=== PATIENT | male | born 1935 | race Caucasian/White ===

== ENCOUNTER 2020-08-11 23:44 | Inpatient (IN) ==
[2020-08-12] MEDS ORDERED: SODIUM CHLORIDE 0.9% 1,000 ML IV STA (00:10)
[2020-08-12 01:22] LABS: ABG Base Excess 3.8 MMOL/L (-2.5-2.5); ABG HCO3 27.8 MMOL/L (20-26); ABG Oxygen Saturation 96.8 % (95-100); ABG PCO2 37.9 MM HG (35-48); ABG PO2 80.8 MM HG (80-95); ABG TCO2 25.3 MMOL/L (23-27)
[2020-08-12 01:23] LABS: Basophils % 0.1 % (0.0-0.8); Hematocrit 30.8 VOL% (42.0-52.0); Hemoglobin 9.9 GM/DL (14.0-18.0); Immature Granulocytes % 1.3 %; Immature Granulocytes Absolute 0.16 #; Lymphocytes # 0.6 10*3/uL (1.4-4.0); Mean Corpuscular HGB Conc 32.1 GM/DL (32-36); Mean Corpuscular Volume 93.6 FL (87-102); Mean Platelet Volume 9.4 FL (9.6-12.0); Monocytes % 1.7 % (1.7-12.7); Neutrophils % 91.9 % (38.7-73.9); Platelet Count 509 T/CUMM (130-400); Red Blood Count 3.29 MC/CUMM (3.8-5.5); Red Cell Distribution Width 15.1 % (9.3-17.3); White Blood Count 12.1 T/CUMM (4-12)
[2020-08-12 01:29] LABS: INR 1.1; PT Patient Result 12.2 SECS (9.8-11.9)
[2020-08-12 01:33] LABS: Albumin 2.1 G/DL (3.4-5.0); Bilirubin,Total 1.2 MG/DL (0.2-1.0); Calcium 7.6 MG/DL (8.5-10.1); Ferritin 614.1 ng/ml (26-388); Osmolality,Calculated 283.7 MOS/KG (273-304); Potassium 3.8 MMOL/L (3.5-5.1)
[2020-08-12] MEDS ORDERED: PIPERACILLIN/TAZOBACTAM 3,375 MG in SODIUM CHLORIDE 0.9% 100 ML IV STA (03:24)
[2020-08-12 03:44] LABS: Lymphocytes 2 % (20-55); Platelet Estimate Increased; Segmented Neutrophils 98 % (50-85); Total Cells Counted 100
[2020-08-12 03:45] LABS: Schistocytes Slight
[2020-08-12 03:46] LABS: Polychromasia Few
[2020-08-12 03:58] LABS: Bilirubin,Urine Negative (Negative); Blood, Urine Negative (Negative); Glucose,Urine (UA) Negative (Negative); Ketones,Urine Negative (Negative); Nitrite,Urine Negative (Negative); Protein,Urine 30 MG/DL; Urine Appearance CLEAR (Clear); Urine Color Amber (Yellow); Urine Specific Gravity 1.026 (1.001-1.035); Urine Urobilinogen < 2.0 EU/DL (0.2-1.0)
[2020-08-12] MEDS ORDERED: hydrALAZINE 20 MG/1 ML VIAL IV PRN (09:42)
[2020-08-12] MEDS ORDERED: DEXTROSE 50% 25 GM/50 ML VIAL IV PRN (09:42)
[2020-08-12] MEDS ORDERED: MORPHINE 4 MG/1 ML VIAL IV PRN (09:42)
[2020-08-12] MEDS ORDERED: ONDANSETRON 4 MG/2 ML VIAL IV PRN (09:42)
[2020-08-12] MEDS ORDERED: ENOXAPARIN 40 MG/0.4 ML SYRINGE SUBCUT SCH (10:00)
[2020-08-12] MEDS: PIPERACILLIN/TAZOBACTAM 3,375 MG in SODIUM CHLORIDE 0.9% 100 ML IV SCH ×2 (11:41→21:01)
[2020-08-12] MEDS: AMIODARONE 200 MG TABLET PO SCH (13:10)
[2020-08-12] MEDS: CHOLECALCIFEROL 1,000 UNIT TABLET PO SCH (13:10)
[2020-08-12] MEDS: ASPIRIN EC 81 MG TABLET PO SCH (13:10)
[2020-08-12] MEDS: TAMSULOSIN 0.4 MG CAPSULE PO SCH (13:10)
[2020-08-12] MEDS: APIXABAN 2.5 MG TABLET PO SCH ×2 (13:10→20:56)
[2020-08-12] MEDS: FUROSEMIDE 40 MG/4 ML VIAL IV SCH (16:46)
[2020-08-12] MEDS: CALCIUM (CARBONATE) 600 MG TABLET PO SCH (17:17)
[2020-08-12] MEDS: guaiFENesin/DM ER 600-30 MG TABLET PO SCH (21:01)
[2020-08-13] MEDS: PIPERACILLIN/TAZOBACTAM 3,375 MG in SODIUM CHLORIDE 0.9% 100 ML IV SCH ×3 (05:27→22:05)
[2020-08-13 06:39] LABS: Risk Ratio 2.74; VLDL CHOLESTEROL 13.8 MG/DL
[2020-08-13] MEDS: AMIODARONE 200 MG TABLET PO SCH (08:44)
[2020-08-13] MEDS: CALCIUM (CARBONATE) 600 MG TABLET PO SCH ×2 (08:44→19:01)
[2020-08-13] MEDS: guaiFENesin/DM ER 600-30 MG TABLET PO SCH ×2 (08:44→22:05)
[2020-08-13] MEDS: ASPIRIN EC 81 MG TABLET PO SCH (08:44)
[2020-08-13] MEDS: CHOLECALCIFEROL 1,000 UNIT TABLET PO SCH (08:44)
[2020-08-13] MEDS: FUROSEMIDE 40 MG/4 ML VIAL IV SCH ×2 (08:45→17:51)
[2020-08-13] MEDS: APIXABAN 2.5 MG TABLET PO SCH ×2 (08:45→22:05)
[2020-08-13] MEDS: TAMSULOSIN 0.4 MG CAPSULE PO SCH (08:45)
[2020-08-14] MEDS: PIPERACILLIN/TAZOBACTAM 3,375 MG in SODIUM CHLORIDE 0.9% 100 ML IV SCH ×3 (05:32→22:33)
[2020-08-14] MEDS: APIXABAN 2.5 MG TABLET PO SCH ×2 (09:22→22:32)
[2020-08-14] MEDS: ASPIRIN EC 81 MG TABLET PO SCH (09:22)
[2020-08-14] MEDS: guaiFENesin/DM ER 600-30 MG TABLET PO SCH ×2 (09:22→22:32)
[2020-08-14] MEDS: TAMSULOSIN 0.4 MG CAPSULE PO SCH (09:23)
[2020-08-14] MEDS: AMIODARONE 200 MG TABLET PO SCH (09:23)
[2020-08-14] MEDS: FUROSEMIDE 40 MG/4 ML VIAL IV SCH ×2 (09:23→16:35)
[2020-08-14] MEDS: CALCIUM (CARBONATE) 600 MG TABLET PO SCH ×2 (09:23→16:55)
[2020-08-14] MEDS: CHOLECALCIFEROL 1,000 UNIT TABLET PO SCH (10:05)
[2020-08-14] MEDS: NYSTATIN 500,000 UNIT/5 ML UDCUP SWISH/SWAL SCH ×2 (16:55→22:33)
[2020-08-14] MEDS: methylPREDNISolone SOD SUC 40 MG/1 ML VIAL IV SCH (16:55)
[2020-08-15] MEDS: methylPREDNISolone SOD SUC 40 MG/1 ML VIAL IV SCH ×3 (00:35→17:04)
[2020-08-15] MEDS: PIPERACILLIN/TAZOBACTAM 3,375 MG in SODIUM CHLORIDE 0.9% 100 ML IV SCH ×3 (05:25→20:14)
[2020-08-15] MEDS: ASPIRIN EC 81 MG TABLET PO SCH (08:56)
[2020-08-15] MEDS: CHOLECALCIFEROL 1,000 UNIT TABLET PO SCH (08:56)
[2020-08-15] MEDS: NYSTATIN 500,000 UNIT/5 ML UDCUP SWISH/SWAL SCH ×4 (08:56→20:15)
[2020-08-15] MEDS: CALCIUM (CARBONATE) 600 MG TABLET PO SCH ×2 (08:56→17:05)
[2020-08-15] MEDS: APIXABAN 2.5 MG TABLET PO SCH ×2 (08:56→20:15)
[2020-08-15] MEDS: AMIODARONE 200 MG TABLET PO SCH (08:56)
[2020-08-15] MEDS: guaiFENesin/DM ER 600-30 MG TABLET PO SCH ×2 (08:56→20:15)
[2020-08-15] MEDS: FUROSEMIDE 40 MG/4 ML VIAL IV SCH ×2 (08:56→17:05)
[2020-08-15] MEDS: TAMSULOSIN 0.4 MG CAPSULE PO SCH (08:56)
[2020-08-16] MEDS: methylPREDNISolone SOD SUC 40 MG/1 ML VIAL IV SCH ×3 (00:32→16:05)
[2020-08-16] MEDS: PIPERACILLIN/TAZOBACTAM 3,375 MG in SODIUM CHLORIDE 0.9% 100 ML IV SCH ×3 (05:13→20:23)
[2020-08-16 05:34] LABS: Basophils % 0.1 % (0.0-0.8); Hematocrit 30.5 VOL% (42.0-52.0); Hemoglobin 9.8 GM/DL (14.0-18.0); Immature Granulocytes % 0.6 %; Immature Granulocytes Absolute 0.09 #; Lymphocytes # 0.7 10*3/uL (1.4-4.0); Lymphocytes % 4.7 % (21.2-54.2); Mean Corpuscular HGB Conc 32.1 GM/DL (32-36); Mean Corpuscular Volume 92.7 FL (87-102); Mean Platelet Volume 9.4 FL (9.6-12.0); Monocytes % 2.3 % (1.7-12.7); Neutrophils % 92.3 % (38.7-73.9); Platelet Count 472 T/CUMM (130-400); Red Blood Count 3.29 MC/CUMM (3.8-5.5); Red Cell Distribution Width 15.2 % (9.3-17.3); White Blood Count 13.9 T/CUMM (4-12)
[2020-08-16 05:54] LABS: Calcium 7.3 MG/DL (8.5-10.1); Osmolality,Calculated 303.4 MOS/KG (273-304); Potassium 3.4 MMOL/L (3.5-5.1)
[2020-08-16 06:07] LABS: Hypochromasia 1+; Lymphocytes 2 % (20-55); Microcytosis 1+; Platelet Estimate Adequate; Segmented Neutrophils 96 % (50-85); Total Cells Counted 100
[2020-08-16] MEDS: CALCIUM (CARBONATE) 600 MG TABLET PO SCH ×2 (09:00→16:06)
[2020-08-16] MEDS: FUROSEMIDE 40 MG/4 ML VIAL IV SCH ×2 (09:00→16:05)
[2020-08-16] MEDS: AMIODARONE 200 MG TABLET PO SCH (09:00)
[2020-08-16] MEDS: TAMSULOSIN 0.4 MG CAPSULE PO SCH (09:01)
[2020-08-16] MEDS: NYSTATIN 500,000 UNIT/5 ML UDCUP SWISH/SWAL SCH ×4 (09:01→20:25)
[2020-08-16] MEDS: ASPIRIN EC 81 MG TABLET PO SCH (09:01)
[2020-08-16] MEDS: guaiFENesin/DM ER 600-30 MG TABLET PO SCH ×2 (09:01→20:23)
[2020-08-16] MEDS: APIXABAN 2.5 MG TABLET PO SCH ×2 (09:01→20:23)
[2020-08-16] MEDS: CHOLECALCIFEROL 1,000 UNIT TABLET PO SCH (09:01)
[2020-08-17] MEDS: methylPREDNISolone SOD SUC 40 MG/1 ML VIAL IV SCH ×3 (00:53→17:05)
[2020-08-17] MEDS: PIPERACILLIN/TAZOBACTAM 3,375 MG in SODIUM CHLORIDE 0.9% 100 ML IV SCH (04:31)
[2020-08-17] MEDS: CHOLECALCIFEROL 1,000 UNIT TABLET PO SCH (09:23)
[2020-08-17] MEDS: FUROSEMIDE 40 MG/4 ML VIAL IV SCH (09:24)
[2020-08-17] MEDS: guaiFENesin/DM ER 600-30 MG TABLET PO SCH ×2 (09:24→21:19)
[2020-08-17] MEDS: CALCIUM (CARBONATE) 600 MG TABLET PO SCH ×2 (09:24→17:05)
[2020-08-17] MEDS: ASPIRIN EC 81 MG TABLET PO SCH (09:24)
[2020-08-17] MEDS: TAMSULOSIN 0.4 MG CAPSULE PO SCH (09:24)
[2020-08-17] MEDS: APIXABAN 2.5 MG TABLET PO SCH ×2 (09:24→21:18)
[2020-08-17] MEDS: NYSTATIN 500,000 UNIT/5 ML UDCUP SWISH/SWAL SCH ×4 (09:24→21:18)
[2020-08-18] MEDS: methylPREDNISolone SOD SUC 40 MG/1 ML VIAL IV SCH ×3 (01:21→16:43)
[2020-08-18 06:29] LABS: Basophils % 0.1 % (0.0-0.8); Hematocrit 36.2 VOL% (42.0-52.0); Hemoglobin 11.4 GM/DL (14.0-18.0); Immature Granulocytes % 0.8 %; Immature Granulocytes Absolute 0.12 #; Lymphocytes # 0.4 10*3/uL (1.4-4.0); Lymphocytes % 2.8 % (21.2-54.2); Mean Corpuscular HGB Conc 31.5 GM/DL (32-36); Mean Platelet Volume 9.7 FL (9.6-12.0); Monocytes % 1.9 % (1.7-12.7); Neutrophils % 94.4 % (38.7-73.9); Platelet Count 429 T/CUMM (130-400); Red Blood Count 3.85 MC/CUMM (3.8-5.5); Red Cell Distribution Width 14.6 % (9.3-17.3); White Blood Count 15.1 T/CUMM (4-12)
[2020-08-18 06:50] LABS: Calcium 7.7 MG/DL (8.5-10.1); Osmolality,Calculated 307.4 MOS/KG (273-304); Potassium 3.6 MMOL/L (3.5-5.1)
[2020-08-18 06:55] LABS: Band Neutrophils 1 % (0-10); Hypochromasia Slight; Lymphocytes 2 % (20-55); Platelet Estimate Adequate; Segmented Neutrophils 96 % (50-85); Total Cells Counted 100
[2020-08-18 06:56] LABS: Microcytosis Slight
[2020-08-18] MEDS: CALCIUM (CARBONATE) 600 MG TABLET PO SCH ×2 (09:50→17:16)
[2020-08-18] MEDS: TAMSULOSIN 0.4 MG CAPSULE PO SCH (09:50)
[2020-08-18] MEDS: guaiFENesin/DM ER 600-30 MG TABLET PO SCH ×2 (09:50→20:36)
[2020-08-18] MEDS: APIXABAN 2.5 MG TABLET PO SCH ×2 (09:50→20:36)
[2020-08-18] MEDS: ASPIRIN EC 81 MG TABLET PO SCH (09:50)
[2020-08-18] MEDS: NYSTATIN 500,000 UNIT/5 ML UDCUP SWISH/SWAL SCH ×4 (09:51→20:36)
[2020-08-18] MEDS: CHOLECALCIFEROL 1,000 UNIT TABLET PO SCH (09:55)
[2020-08-19] MEDS: methylPREDNISolone SOD SUC 40 MG/1 ML VIAL IV SCH ×3 (01:07→17:39)
[2020-08-19] MEDS: CHOLECALCIFEROL 1,000 UNIT TABLET PO SCH (08:57)
[2020-08-19] MEDS: TAMSULOSIN 0.4 MG CAPSULE PO SCH (08:57)
[2020-08-19] MEDS: ASPIRIN EC 81 MG TABLET PO SCH (08:57)
[2020-08-19] MEDS: CALCIUM (CARBONATE) 600 MG TABLET PO SCH ×2 (08:57→17:39)
[2020-08-19] MEDS: APIXABAN 2.5 MG TABLET PO SCH ×2 (08:57→21:20)
[2020-08-19] MEDS: guaiFENesin/DM ER 600-30 MG TABLET PO SCH ×2 (08:57→21:20)
[2020-08-19] MEDS: NYSTATIN 500,000 UNIT/5 ML UDCUP SWISH/SWAL SCH ×4 (08:58→21:20)
[2020-08-19 15:43] LABS: Hematocrit 36.8 VOL% (42.0-52.0)
[2020-08-20] MEDS: methylPREDNISolone SOD SUC 40 MG/1 ML VIAL IV SCH ×3 (00:13→17:41)
[2020-08-20] MEDS: APIXABAN 2.5 MG TABLET PO SCH ×2 (08:44→20:57)
[2020-08-20] MEDS: CHOLECALCIFEROL 1,000 UNIT TABLET PO SCH (08:44)
[2020-08-20] MEDS: NYSTATIN 500,000 UNIT/5 ML UDCUP SWISH/SWAL SCH ×4 (08:44→20:57)
[2020-08-20] MEDS: ASPIRIN EC 81 MG TABLET PO SCH (08:44)
[2020-08-20] MEDS: guaiFENesin/DM ER 600-30 MG TABLET PO SCH ×2 (08:45→20:57)
[2020-08-20 08:46] LABS: Basophils % 0.2 % (0.0-0.8); Hematocrit 37.3 VOL% (42.0-52.0); Hemoglobin 11.5 GM/DL (14.0-18.0); Immature Granulocytes % 1.1 %; Immature Granulocytes Absolute 0.18 #; Lymphocytes # 0.5 10*3/uL (1.4-4.0); Lymphocytes % 2.8 % (21.2-54.2); Mean Corpuscular HGB Conc 30.8 GM/DL (32-36); Mean Corpuscular Volume 94.7 FL (87-102); Mean Platelet Volume 9.6 FL (9.6-12.0); Monocytes % 2.6 % (1.7-12.7); Neutrophils % 93.3 % (38.7-73.9); Platelet Count 395 T/CUMM (130-400); Red Blood Count 3.94 MC/CUMM (3.8-5.5); Red Cell Distribution Width 15.1 % (9.3-17.3); White Blood Count 16.2 T/CUMM (4-12)
[2020-08-20] MEDS: CALCIUM (CARBONATE) 600 MG TABLET PO SCH ×2 (08:46→17:42)
[2020-08-20] MEDS: TAMSULOSIN 0.4 MG CAPSULE PO SCH (08:46)
[2020-08-20 09:06] LABS: Hypochromasia Slight; Lymphocytes 2 % (20-55); Platelet Estimate Adequate; Segmented Neutrophils 98 % (50-85); Total Cells Counted 100
[2020-08-20 09:09] LABS: Potassium 3.6 MMOL/L (3.5-5.1)
[2020-08-20] MEDS ORDERED: DEXTROSE 5% NACL 0.45% 1,000 ML IV SCH (16:00)
[2020-08-21] MEDS: methylPREDNISolone SOD SUC 40 MG/1 ML VIAL IV SCH ×3 (00:52→17:42)
[2020-08-21 05:43] LABS: Basophils % 0.1 % (0.0-0.8); Hematocrit 35.2 VOL% (42.0-52.0); Hemoglobin 10.7 GM/DL (14.0-18.0); Immature Granulocytes % 0.8 %; Immature Granulocytes Absolute 0.14 #; Lymphocytes # 0.4 10*3/uL (1.4-4.0); Lymphocytes % 2.4 % (21.2-54.2); Mean Corpuscular HGB Conc 30.4 GM/DL (32-36); Mean Corpuscular Volume 95.7 FL (87-102); Mean Platelet Volume 10.2 FL (9.6-12.0); Monocytes % 2.2 % (1.7-12.7); Neutrophils % 94.5 % (38.7-73.9); Platelet Count 362 T/CUMM (130-400); Red Blood Count 3.68 MC/CUMM (3.8-5.5); Red Cell Distribution Width 15.2 % (9.3-17.3); White Blood Count 17.4 T/CUMM (4-12)
[2020-08-21 06:18] LABS: Calcium 7.8 MG/DL (8.5-10.1); Osmolality,Calculated 317.9 MOS/KG (273-304); Potassium 3.6 MMOL/L (3.5-5.1)
[2020-08-21 06:19] LABS: Osmolality,Calculated 317.7 MOS/KG (273-304); Potassium 3.6 MMOL/L (3.5-5.1)
[2020-08-21 06:43] LABS: Lymphocytes 3 % (20-55); Platelet Estimate Normal; Segmented Neutrophils 96 % (50-85); Total Cells Counted 100
[2020-08-21] MEDS: guaiFENesin/DM ER 600-30 MG TABLET PO SCH ×2 (09:20→20:22)
[2020-08-21] MEDS: ASPIRIN EC 81 MG TABLET PO SCH (09:20)
[2020-08-21] MEDS: CALCIUM (CARBONATE) 600 MG TABLET PO SCH ×2 (09:21→17:42)
[2020-08-21] MEDS: TAMSULOSIN 0.4 MG CAPSULE PO SCH (09:21)
[2020-08-21] MEDS: CHOLECALCIFEROL 1,000 UNIT TABLET PO SCH (09:21)
[2020-08-21] MEDS: APIXABAN 2.5 MG TABLET PO SCH ×2 (09:21→20:22)
[2020-08-21] MEDS: NYSTATIN 500,000 UNIT/5 ML UDCUP SWISH/SWAL SCH ×4 (09:21→20:23)
[2020-08-22] MEDS: methylPREDNISolone SOD SUC 40 MG/1 ML VIAL IV SCH ×3 (00:05→16:30)
[2020-08-22 05:12] LABS: Basophils % 0.1 % (0.0-0.8); Hematocrit 34.3 VOL% (42.0-52.0); Hemoglobin 10.7 GM/DL (14.0-18.0); Immature Granulocytes % 1.2 %; Immature Granulocytes Absolute 0.23 #; Lymphocytes # 0.5 10*3/uL (1.4-4.0); Lymphocytes % 2.6 % (21.2-54.2); Mean Corpuscular HGB Conc 31.2 GM/DL (32-36); Mean Corpuscular Volume 94.2 FL (87-102); Mean Platelet Volume 10.6 FL (9.6-12.0); Monocytes % 2.5 % (1.7-12.7); Neutrophils % 93.6 % (38.7-73.9); Platelet Count 293 T/CUMM (130-400); Red Blood Count 3.64 MC/CUMM (3.8-5.5); Red Cell Distribution Width 15.5 % (9.3-17.3); White Blood Count 19.1 T/CUMM (4-12)
[2020-08-22 05:35] LABS: Hypochromasia 1+; Lymphocytes 2 % (20-55); Microcytosis 1+; Platelet Estimate Adequate; Segmented Neutrophils 97 % (50-85); Total Cells Counted 100
[2020-08-22 05:41] LABS: Calcium 7.7 MG/DL (8.5-10.1)
[2020-08-22] MEDS: APIXABAN 2.5 MG TABLET PO SCH ×2 (13:08→21:12)
[2020-08-22] MEDS: CHOLECALCIFEROL 1,000 UNIT TABLET PO SCH (13:08)
[2020-08-22] MEDS: NYSTATIN 500,000 UNIT/5 ML UDCUP SWISH/SWAL SCH ×3 (13:08→21:12)
[2020-08-22] MEDS: ASPIRIN EC 81 MG TABLET PO SCH (13:08)
[2020-08-22] MEDS: TAMSULOSIN 0.4 MG CAPSULE PO SCH (13:08)
[2020-08-22] MEDS: guaiFENesin/DM ER 600-30 MG TABLET PO SCH ×2 (13:08→21:12)
[2020-08-22] MEDS: CALCIUM (CARBONATE) 600 MG TABLET PO SCH ×2 (13:08→16:30)
[2020-08-22 14:55] LABS: Bilirubin,Urine Negative (Negative); Blood, Urine Large mg/dL (Negative); Glucose,Urine (UA) 50 mg/dL (Negative); Ketones,Urine Negative (Negative); Mucus,Urine Moderate /LPF (Occasional); Nitrite,Urine Negative (Negative); Protein,Urine 100 MG/DL; RBC,Urine 2258 /HPF (0-4); Squamous Epithelial Cell,Urine Occasional /HPF (0-10); Urine Appearance Slightly Hazy (Clear); Urine Color Amber (Yellow); Urine Specific Gravity 1.017 (1.001-1.035); WBC,Urine 148 /HPF (0-6)
[2020-08-23] MEDS: methylPREDNISolone SOD SUC 40 MG/1 ML VIAL IV SCH ×3 (00:52→22:55)
[2020-08-23] MEDS: THIAMINE 100 MG TABLET PER TUBE SCH (09:40)
[2020-08-23] MEDS: ASPIRIN EC 81 MG TABLET PO SCH (09:40)
[2020-08-23] MEDS: CHOLECALCIFEROL 1,000 UNIT TABLET PO SCH (09:40)
[2020-08-23] MEDS: CALCIUM (CARBONATE) 600 MG TABLET PO SCH ×2 (09:40→17:09)
[2020-08-23] MEDS: APIXABAN 2.5 MG TABLET PO SCH ×2 (09:40→22:55)
[2020-08-23] MEDS: NYSTATIN 500,000 UNIT/5 ML UDCUP SWISH/SWAL SCH ×4 (09:40→22:55)
[2020-08-23] MEDS: guaiFENesin/DM ER 600-30 MG TABLET PO SCH ×2 (09:40→22:55)
[2020-08-23] MEDS: TAMSULOSIN 0.4 MG CAPSULE PO SCH (09:41)
[2020-08-23] MEDS: cefTRIAXone 1,000 MG in SYRINGE 1 EACH IV SCH (11:10)
[2020-08-23] MEDS ORDERED: TEMAZEPAM 7.5 MG CAPSULE PO ONE (22:27)
[2020-08-24] MEDS ORDERED: MORPHINE 4 MG/1 ML VIAL IV ONE (02:46)
[2020-08-24 06:18] LABS: Basophils % 0.2 % (0.0-0.8); Hematocrit 36.2 VOL% (42.0-52.0); Hemoglobin 11.5 GM/DL (14.0-18.0); Immature Granulocytes Absolute 0.27 #; Lymphocytes # 0.5 10*3/uL (1.4-4.0); Lymphocytes % 1.7 % (21.2-54.2); Mean Corpuscular HGB Conc 31.8 GM/DL (32-36); Mean Corpuscular Volume 93.5 FL (87-102); Mean Platelet Volume 11.8 FL (9.6-12.0); Monocytes % 2.7 % (1.7-12.7); Neutrophils % 94.4 % (38.7-73.9); Platelet Count 247 T/CUMM (130-400); Red Blood Count 3.87 MC/CUMM (3.8-5.5); Red Cell Distribution Width 15.8 % (9.3-17.3); White Blood Count 25.8 T/CUMM (4-12)
[2020-08-24 06:44] LABS: Albumin 1.8 G/DL (3.4-5.0); Bilirubin,Total 1.5 MG/DL (0.2-1.0); Calcium 7.4 MG/DL (8.5-10.1); Osmolality,Calculated 321.6 MOS/KG (273-304); Potassium 4.7 MMOL/L (3.5-5.1); Total Protein 4.7 G/DL (6.4-8.3)
[2020-08-24] MEDS: methylPREDNISolone SOD SUC 40 MG/1 ML VIAL IV SCH (08:53)
[2020-08-24] MEDS: CALCIUM (CARBONATE) 600 MG TABLET PO SCH (08:54)
[2020-08-24] MEDS: NYSTATIN 500,000 UNIT/5 ML UDCUP SWISH/SWAL SCH ×2 (08:54→12:14)
[2020-08-24] MEDS: TAMSULOSIN 0.4 MG CAPSULE PO SCH (08:54)
[2020-08-24] MEDS: APIXABAN 2.5 MG TABLET PO SCH (08:54)
[2020-08-24] MEDS: CHOLECALCIFEROL 1,000 UNIT TABLET PO SCH (08:54)
[2020-08-24] MEDS: THIAMINE 100 MG TABLET PER TUBE SCH (08:54)
[2020-08-24] MEDS: ASPIRIN EC 81 MG TABLET PO SCH (08:54)
[2020-08-24] MEDS: guaiFENesin/DM ER 600-30 MG TABLET PO SCH (08:54)
[2020-08-24] MEDS: cefTRIAXone 1,000 MG in SYRINGE 1 EACH IV SCH (10:01)
[2020-08-24 10:55] LABS: ABG Base Excess 6.8 MMOL/L (-2.5-2.5); ABG HCO3 30.6 MMOL/L (20-26); ABG PCO2 38.6 MM HG (35-48); ABG PH 7.504 (7.35-7.45); ABG PO2 71.3 MM HG (80-95); ABG TCO2 26.9 MMOL/L (23-27)
[2020-08-24 15:14] LABS: Band Neutrophils 5 % (0-10); Lymphocytes 3 % (20-55); Platelet Estimate Normal; Segmented Neutrophils 90 % (50-85); Total Cells Counted 100
[2020-08-24] MEDS: MORPHINE 4 MG/1 ML VIAL IV PRN ×3 (18:44→23:13)
[2020-08-24] MEDS: LORazepam 2 MG/1 ML VIAL IV PRN ×3 (18:45→23:59)
[2020-08-24 22:06] VITALS: BP 116/79
[2020-08-25] MEDS: MORPHINE 4 MG/1 ML VIAL IV PRN (00:13)
== END 2020-08-25 00:24 | disposition expired | DRG 205 ==
LOC: EDUNIT# → EDBD → N.ED 23:44 → N.EDINP 08-12 05:43 → SUATTDRO 08-12 05:43 → N.EDINP 08-12 07:46 → N.5E 08-12 08:07
PROVIDERS: ADMIT Internal Medicine; ATTEND Internal Medicine